=== PATIENT | female | born 2000 | race Caucasian/White ===

== ENCOUNTER 2021-05-11 10:41 | Emergency (ER) | payer BC, SELFPAY ==
[2021-05-11 10:51] VITALS: BP 122/88; PULSE 84; RESP 20; TEMP 36.8; O2SAT 100
--- NOTE | 2021-05-11 10:59 | ED.ALLEREA ---
HPI - Allergic Reaction General Chief complaint: Allergic Reaction Stated complaint: ALLERGIC REACTION Time Seen by Provider: 05/11/21 10:59 History of Present Illness HPI narrative: 20 yo female presents to the ED for an allergic reaction. She accidentally ate a fig donut, she has a known fig allergy. She developed an itchy rahs in her face and fullness in her throat. She took Benadryl and the rash subsided. She has no other complaints at this time. Related Data Allergies Allergy/AdvReac Type Severity Reaction Status Date / Time amoxicillin Allergy Unknown Hives Verified 05/11/21 11:54 fig Allergy Rash Uncoded 05/11/21 11:54 Review of Systems Review of Systems: All systems reviewed & are unremarkable except as noted in HPI and below Constitutional: Constitutional: Denies chills and Denies fever(s) ENT: Denies sore throat Cardiovascular: Cardiovascular: Reports chest pain Respiratory: Respiratory: Denies dyspnea Gastrointestinal: Gastrointestinal: Reports nausea Neurologic: Denies numbness and Denies weakness Psychiatric: Psychiatric: Denies anxiety Allergic/Immunologic: Allergic/Immunologic: Denies lip swelling, Reports throat swelling and Denies tongue swelling PMFSH Social History Social History Gender identity (if verbalized by the patient): Female Exam Const: General: healthy appearing, no acute distress and alert Orientation/consciousness: patient oriented x3 HENMT: Head: normal to inspection General nose exam: Normal nares present Face and sinus: normal facial exam Mouth: Yes Normal oral and palatal mucosa present Throat: posterior oropharynx normal Neck: Neck: normal visual inspection and no lymphadenopathy Resp: Effort & Inspection: normal respiratory effort Auscultation: clear to auscultation bilaterally, no rales, no rhonchi and no wheezes Cardio: Jugular venous distension: no JVD Rate: regular rate Rhythm: regular rhythm Heart sounds: no murmurs Skin: General skin exam: normal color Neuro: General: patient oriented x3 and moves all extremities Speech: normal speech Extrem: General: no edema Psych: Appearance: well kempt Affect: normal affect Course Vital Signs Vital signs: Vital Signs Temperature 36.8 C 05/11/21 10:51 Pulse Rate 84 05/11/21 10:51 Respiratory Rate 20 05/11/21 10:51 Blood Pressure 122/88 05/11/21 10:51 Pulse Oximetry 100 05/11/21 10:51 Temperature 36.8 C 05/11/21 10:51 Pulse Rate 75 05/11/21 11:51 Respiratory Rate 18 05/11/21 11:51 Blood Pressure 121/71 05/11/21 11:51 Pulse Oximetry 99 05/11/21 11:51 MDM - Allergic Reaction Differential Diagnosis Differential diagnosis: Likely allergic reaction Medical Records Attestation: I reviewed the patient's medical records. Discharge Plan Discharge Clinical Impression: Allergic reaction Patient Disposition: Home, Self-Care Condition: Stable Instructions: Food Allergy (ED) Prescriptions: New prednisone 20 mg tablet 40 mg PO DAILY 3 Days Qty: 6 RF: 0 Follow-up/Referrals: Mitul,Damian Aldana MD [Primary Care Provider] -
[2021-05-11 11:51] VITALS: BP 121/71; PULSE 75; RESP 18; O2SAT 99
[2021-05-11] MEDS: FAMOTIDINE 20 MG TABLET PO (11:55)
[2021-05-11] MEDS: predniSONE 20 MG TABLET 60 MG PO (11:56)
[2021-05-11 13:25] VITALS: BP 107/59; PULSE 64; RESP 18; O2SAT 100
== END 2021-05-11 13:32 | disposition home or self-care (01) ==
PROVIDERS: Emergency Provider Emergency Medicine; PCP Family Medicine
DX: T78.1XXA Other adverse food reactions, not elsewhere classified, initial encounter (principal); L27.2 Dermatitis due to ingested food
CPT/HCPCS: 99283; A9270; J7512

== ENCOUNTER 2023-02-23 11:20 | Emergency (ER) | payer BC, SELFPAY ==
--- NOTE | ~2023-02-23 | CT_ITS ---
EXAMINATION: CT abdomen pelvis w con DATE: 02/23/2023 13:09 INDICATION: Epigastric abdominal pain. Nausea and vomiting. Diarrhea. TECHNIQUE: Computed tomography (CT) of the abdomen and pelvis was performed with 100 mL Omnipaque 350 intravenous contrast. Automated exposure control and iterative reconstruction technique were employe d. The dose-length product was 682.86 mGy-cm. COMPARISON: None. FINDINGS: The visualized portions of the lung bases are clear without pneumonia or pleural effusion. The heart size is normal. No pericardial effusion. The liver, gallbladder, spleen, pancreas, adrenal glands, and kidneys are normal. There is liquid stool in the colon correlating with the patient's sym ptom of diarrhea. The appendix is normal. There are no pathologically enlarged lymph nodes. There is no free intraperitoneal fluid. There is a ring-shaped device in the vagina. There is mild thoracic sp ondylosis. IMPRESSION: 1. No etiology for the patient's symptoms. Reviewed, dictated and finalized at location A.
[2023-02-23 11:21] VITALS: BP 131/92; PULSE 105; RESP 18; TEMP 36.9; O2SAT 99
[2023-02-23] MEDS: ONDANSETRON INJ 4 MG/2 ML VIAL IV PUSH (12:03)
[2023-02-23] MEDS: FAMOTIDINE 20 MG/2 ML VIAL IV PUSH (12:03)
[2023-02-23] MEDS: DICYCLOMINE HCL INJ 20 MG/2 ML VIAL IM (12:04)
--- NOTE | 2023-02-23 12:04 | ED.ABDPAIN ---
HPI - Abdominal Pain General Chief Complaint: Abdominal Pain Stated Complaint: n/v Time Seen by Provider: 02/23/23 11:37 History of Present Illness HPI narrative: Patient is a 22-year-old G1, P1 female here for evaluation of nausea, vomiting and diarrhea over the past day. Additionally reports a crampy epigastric abdominal discomfort. States that she woke up with the symptoms and she has been unable to tolerate p.o since. Her last p.o. intake was cheese dip last night for dinner. States that her is sick with a URI but not similar symptoms. She denies any fevers, chills, shortness of breath. No blood in her vomit or stools. Related Data Allergies Allergy/AdvReac Type Severity Reaction Status Date / Time amoxicillin Allergy Unknown Hives Verified 05/11/21 11:54 fig Allergy Rash Uncoded 05/11/21 11:54 Review of Systems Review of Systems: Gen.: Denies fevers or chills Eyes: Denies eye pain or visual change ENT: Denies congestion Respiratory: Denies shortness of breath or cough CV: Denies chest pain or palpitations GI: Reports abdominal pain nausea, emesis and diarrhea : denies burning, urgency, frequency or hematuria Musculoskeletal: Denies back pain or muscle pain Neuro: Denies numbness, tingling, weakness or focal weakness Skin: Denies rash Except as documented, all other systems reviewed and negative [facility] Social History Social History Gender identity (if verbalized by the patient): Female Exam Narrative: APPEARANCE: Uncomfortable appearing. Head: Normocephalic and atraumatic. EYES: PERRLA/EOMI, conjunctivae clear NOSE: No nasal drainage EARS: External ear normal in appearance THROAT: Oropharynx is clear. Mucous membranes are moist. NECK: Supple. No adenopathy, no masses. RESPIRATORY: Airway patent, respirations nonlabored. Clear to auscultation bilaterally, no rales, rhonchi, wheezing. CARDIOVASCULAR: Regular rate and rhythm without murmurs, rubs, or gallops. ABDOMINAL: Slight epigastric tenderness to palpation. No rebound or guarding. Normoactive bowel sounds. MUSCULOSKELETAL: Extremities are warm and well-perfused. Moves all extremities well. No edema. NEURO: Normal speech. No focal neurologic deficits. SKIN: Skin is warm and dry. No rashes. PSYCHIATRIC: Normal affect/mood.. Course Vital Signs Vital signs: Vital Signs Temperature 98.4 F 02/23/23 11:21 Pulse Rate 105 H 02/23/23 11:21 Respiratory Rate 18 02/23/23 11:21 Blood Pressure 131/92 H 02/23/23 11:21 Pulse Oximetry 99 02/23/23 11:21 Oxygen Delivery Room Air 02/23/23 11:21 Temperature 98.4 F 02/23/23 11:21 Pulse Rate 71 02/23/23 14:22 Respiratory Rate 16 02/23/23 14:22 Blood Pressure 127/72 02/23/23 14:22 Pulse Oximetry 98 02/23/23 14:22 Oxygen Delivery Room Air 02/23/23 11:21 MDM - Abdominal Pain MDM Narrative Medical decision making narrative: 22-year-old female here for evaluation of nausea vomiting diarrhea and epigastric abdominal pain since waking up today. She is nontoxic in appearance, initially slightly tachycardic which improved with fluid administration. Slight tenderness in the epigastric region. Her basic labs are unremarkable. CT abdomen pelvis normal. She was given fluids, antiemetics, Pepcid and dicyclomine with improvement of her symptoms. Able to tolerate p.o. Likely gastroenteritis. She was discharged home to follow-up with her PMD, will send home with Zofran and dicyclomine as needed. Return precautions discussed and she voiced understanding. Lab Data 02/23/23 12:22 02/23/23 11:55 Labs: Lab Results 02/23/23 02/23/23 02/23/23 Range/Units 11:55 12:22 12:52 WBC 7.9 (4.5-10.0) K/mm3 RBC 4.76 (4.2-5.4) M/mm3 Hgb 14.3 (12.0-15.0) g/dL Hct 42.5 (37.0-47.0) % MCV 89.3 (80-100) fl MCH 30.0 (26-34) pg MCHC 33.6 (32-36) g/dl RDW 12
[2023-02-23] MEDS: LACTATED RINGERS 1,000 ML 999 ML IV CONT (12:05)
[2023-02-23 12:20] LABS: Alanine Aminotransferase 27 U/L (6-35); Albumin Level 4.3 g/dL (3.5-5.1); Alkaline Phosphatase 77 U/L (38-126); Anion Gap 10 mmol/L (8-16); Aspartate Amino Transferase 29 U/L (14-36); Bilirubin,Total 0.8 mg/dL (0.2-1.3); Blood Urea Nitrogen 15 mg/dL (7-17); Calcium 8.8 mg/dL (8.4-10.2); Carbon Dioxide 20 mmol/L (22-30); Chloride 106 mmol/L (98-107); Estimated CRCL calculation 128 ml/min; Estimated Glomerular Filt Rate > 60; Glucose 125 mg/dL (65-110); Lipase 49 U/L (23-300); Potassium 3.8 mmol/L (3.4-5.0); Sodium 136 mmol/L (137-145)
[2023-02-23 12:29] LABS: Basophils Percent Auto 0.3 % (0.2-1.2); Eosinophils Percent Auto 0.1 % (0-4.4); Hematocrit 42.5 % (37.0-47.0); Hemoglobin 14.3 g/dL (12.0-15.0); Immature Granulocyte Absolute 0.03 K/mm3 (0.00-0.031); Immature Granulocyte Percent A 0.4 % (0-0.5); Lymphocytes Absolute Auto 0.63 K/mm3 (0.9-3.2); Mean Corpuscular HGB Conc 33.6 g/dl (32-36); Mean Corpuscular Volume 89.3 fl (80-100); Monocytes Absolute Auto 0.4 K/mm3 (0.1-0.6); Monocytes Percent Auto 4.4 % (2.6-8.5); Neutrophils Absolute Auto 6.9 K/mm3 (1.3-6.7); Neutrophils Percent Auto 86.8 % (45.5-73.1); Platelet Count Result 210 k/mm3 (150-375); Red Blood Count 4.76 M/mm3 (4.2-5.4); Red Cell Distribution Width 12.3 % (11.5-14.5); White Blood Count 7.9 K/mm3 (4.5-10.0)
[2023-02-23 13:03] LABS: Appearance Urine Clear (Clear); Bacteria Urine None Seen /hpf; Bilirubin Urine Negative (Negative); Blood Urine Negative (Negative); Color Urine Yellow (Yellow); Glucose Urine UA Negative (Negative); Ketones Urine 2+ mg/dL (Negative); Leukocyte Esterase Ur Trace LEU/UL (Negative); Nitrate Urine Negative (Negative); Non Pathogenic Casts 0-2; Protein Urine Negative (Negative); RBC Urine 0-2 /hpf (0-2); Squamous Epithelial Cell Urine None seen /hpf (Few); WBC Urine 0-5 /hpf; pH Urine 6.5 (5.0-9.0)
[2023-02-23 13:08] LABS: Add Urine Microscopic? YES
[2023-02-23 14:22] VITALS: BP 127/72; PULSE 71; RESP 16; O2SAT 98
== END 2023-02-23 14:24 | disposition home or self-care (01) ==
PROVIDERS: Emergency Medicine; Emergency Provider Physician Assistant
DX: K52.9 Noninfective gastroenteritis and colitis, unspecified (principal)
CPT/HCPCS: 36415; 74177; 80053; 81001; 81025; 83690; 85025; 96361; 96372; 96374; 96375; 99284; J0500; J2405; J7120; Q9967

== ENCOUNTER 2024-02-13 08:51 | Outpatient (CLI) | payer BC, SELFPAY ==
--- NOTE | ~2024-02-13 | XR_ITS ---
EXAMINATION: XR chest 2V 02/13/2024 09:06 INDICATION: Cough PROCEDURE: 2 view chest COMPARISON: No prior studies for comparison. FINDINGS: The lungs are clear. The cardiomediastinal silhouette is within normal limits. There are no pleural effusions. There is no pneumothorax suspected. IMPRESSION: 1: NO ACUTE CARDIOPULMONARY DISEASE. Reviewed, dictated and finalized at location B.
[2024-02-13 10:05] LABS: Influenza A QL RT-PCR Negative (Negative); Influenza B QL RT-PCR Negative (Negative); RSV RNA, RT-PCR Negative (Negative); SARS-CoV-2 RNA PCR Negative (Negative)
== END 2024-02-13 08:52 | disposition home or self-care (01) ==
PROVIDERS: PCP Nurse Practitioner Family; Visit Provider Nurse Practitioner Family
DX: R05.9 Cough, unspecified (principal); Z20.822 Contact with and (suspected) exposure to COVID-19
CPT/HCPCS: 71046; 87637

== ENCOUNTER 2024-06-08 13:52 | Outpatient (CLI) | payer BC, SELFPAY ==
--- NOTE | ~2024-06-08 | US_ITS ---
EXAMINATION: US pelvic complete w TV DATE: 06/08/2024 14:19 INDICATION: Pelvic pain. Abnormal uterine bleeding. TECHNIQUE: Multiple transabdominal and endovaginal sonographic images of the pelvis were obtained. COMPARISON: None. FINDINGS: The uterus measures 7.5 x 3.5 x 4.3 cm. The endometrial complex measures 3 mm in thickness. The righ t ovary measures 2.3 x 1.4 x 2.1 cm. The left ovary measures 2.1 x 1.3 x 1.7 cm. Vascular flow and sm all anechoic ovarian follicles identified in both ovaries on color Doppler. There is no free fluid in the pelvis. IMPRESSION: 1. Normal pelvic ultrasound. Reviewed, dictated and finalized at location A.
== END 2024-06-08 13:53 ==
PROVIDERS: PCP Family Medicine; Visit Provider Nurse Practitioner Women's Health
DX: R10.2 Pelvic and perineal pain (principal)
CPT/HCPCS: 76830; 76856

== ENCOUNTER 2025-03-24 11:12 | Emergency (ER) | payer MEDICAID, SELFPAY ==
[2025-03-24 11:19] VITALS: BP 141/80; PULSE 81; RESP 18; TEMP 36.1; O2SAT 100
--- NOTE | 2025-03-24 11:19 | ED_ITS ---
HPI - URI/Sore Throat General Chief Complaint: Upper Respiratory Infection Stated Complaint: headache/ear pain Time Seen by Provider: 03/24/25 11:15 Source: patient Mode of arrival: ambulatory Limitations: no limitations History of Present Illness HPI Narrative: Patient is a 24-year-old female who presents with chest tightness, body aches, chills, and cough a she also reports around sinus pressure and nasal congestion, and sore throat. Denies fever at this time. Reports decreased appetite, trying to stay hydrated and good urine output. She works at a daycare. She has tried Sudafed yesterday and this morning with minimal improvement. She reports having pneumonia 2 years ago. She also reports nonradiating epigastric pain and constipation last bowel movement was yesterday no blood noted. Reports burning sensation when she takes deep breath. Denies nausea, vomiting, or diarrhea. Related Data Allergies Allergy/AdvReac Type Severity Reaction Status Date / Time amoxicillin Allergy Unknown Anaphylaxis Verified 03/24/25 11:28 Penicillins AdvReac Anaphylaxis Verified 03/24/25 11:28 fig Allergy Rash Uncoded 03/24/25 11:28 Review of Systems Review of Systems: All systems reviewed & are unremarkable except as noted in HPI and below Constitutional: Constitutional: Reports body ache(s), Reports chills, Reports difficulty sleeping, Denies fatigue, Denies fever(s), Denies headache(s), Denies malaise, Reports poor appetite and Denies weakness Eyes: Eyes: Denies blurry vision, Reports eye discharge, Denies itchy eyes and Denies loss of vision ENT: Denies otalgia, Denies headache(s), Reports nasal congestion, Reports sinus pain and Reports sore throat (mild) Cardiovascular: Cardiovascular: Denies chest pain, Denies irregular heart rhythm, Reports dyspnea and Reports other (chest tightness and burning when taking a deep breath) Respiratory: Respiratory: Reports cough (nonproductive), Denies hemoptysis, Reports pain on inspiration (burning), Denies dyspnea, Reports dyspnea on exertion and Reports wheezing (at night) Gastrointestinal: Gastrointestinal: Denies abdominal pain, Denies melena, Denies hematochezia, Reports constipation, Denies diarrhea, Denies nausea, Denies vomiting and Reports other (epigastric ache) Musculoskeletal: Musculoskeletal: Denies back pain, Reports myalgias and Denies arthralgias Integumentary/Breasts: Skin/Breast: Denies pruritus and Denies rash Neurologic: Denies headache(s), Denies loss of vision and Denies weakness Psychiatric: Psychiatric: Reports no additional psychiatric complaints Endocrine: Endocrine: Denies fatigue Allergic/Immunologic: Allergic/Immunologic: Denies itchy eyes PMFSH Social History Social History Smoking status: Never smoker Tobacco type: e-cigarettes/vaping Alcohol intake: current Substance use type: does not use Gender identity (if verbalized by the patient): Female Comments At time of signature, agree with nursing past medical, surgical, social and family history. There is no relevant family history pertinent to the presenting complaint. Exam Const: General: cooperative, healthy appearing, comfortable, no acute distress and well nourished Nutritional Appearance: well nourished Orientation/consciousness: patient oriented x3 Limitations: no limitations HENMT: Head: normal to inspection, normocephalic and atraumatic Ears: hearing grossly normal bilaterally, external ears normal, TM's normal bilaterally, EAC's normal and no periauricular adenopathy Face/Nose/Sinus: Normal external nose present, Abnormal mucous membranes and turbinates present erythematous bilateral and diffuse, normal facial exam, face symmetric and Facial tenderness on exam of face and sinuses Face and sinus: normal facial exam and face symmetric Mouth: Yes Normal oral and palatal mucosa present, Yes lip normal, Yes tongue normal, Yes Normal salivary glands and ducts present, Yes oropharynx normal and Yes moist mucous membranes Teeth and gingiva: dentition normal Throat: posterior oropharynx normal, tonsils normal and uvula midline Eyes: General: appearance normal, both eyes and all related structures Alignment and Position: alignment normal and position normal Periorbital: periorbital findings normal Eyelids: eyelids normal Pupils: Equal, round and reactive pupils present Neck: Neck: normal visual inspection, full ROM, no lymphadenopathy and supple Chest: Chest palpation & inspection: normal inspection of the chest and normal palpation of entire chest wall Resp: Effort & Inspection: normal respiratory effort, able to speak in complete sentences and Actively coughing dry Auscultation: crackles (fine) diffuse, no rales, no rhonchi and no wheezes Cardio: Rate: regular rate Rhythm: regular rhythm Heart sounds: S1 normal heart sound present and S2 normal heart sound present GI: Inspection: normal to inspection Skin: General skin exam: normal color and no rashes or lesions noted Neuro: General: patient oriented x3 and moves all extremities Cranial nerves: Yes Equal, round and reactive pupils present Speech: normal speech Gait exam (Neuro): Normal gait present Extrem: General: normal to inspection, full ROM and no edema Psych: Appearance: grossly normal and well kempt Mental Status: mental status grossly normal Speech and movement: Normal speech and movement present Affect: normal affect Attitude: cooperative Thought process: Normal thought process present Course Course Emergency Course: Discharge instructions reviewed with patient, as well as provided in writing pe r nursing staff. The instructions also include specific and strict return/GO TO THE ER as well as f/u information. All questions have been answered, and the patient deny any further questions with discharge and discharge plan. Portions of this record may have been created with voice recognition software Level of Care: Express Care Visit Vital Signs Vital signs: Reviewed MDM - URI/Sore Throat MDM Narrative Medical decision making narrative: Pt well hydrated appearing, in no respiratory distress, hemodynamically stable. Recommend supportive care. The patient is stable at time of discharge the clinical impression was discussed and the patient was given the opportunity to ask questions, which were addressed as completely as possible given the information available at present. Anticipatory guidance and return to care precautions were discussed and the importance of primary care follow-up was stressed and encouraged. The patient voiced understanding of the plan, indications to return, and the need for follow-up. Exam findings show no acute concerns or changes Patient is appropriate for outpatient treatment and follow-up. Differential diagnosis considered: Calvo virus, strep pharyngitis, allergic rhinitis, upper respiratory tract infection, sinusitis, rhinosinusitis, nasopharyngitis. viral pharyngitis, otitis media, otitis externa, otitis effusion, foreign body, cerumen impaction, viral syndrome, and influenza.? Medical Records Attestation: I reviewed the patient's medical records. Discharge Plan Discharge Clinical Impression: Sinobronchitis Patient Disposition: Home Condition: Stable Instructions: Sinusitis (ED), Acute Bronchitis (ED) Additional Instructions: Take antibiotic as prescribed. Take steroids in the morning with food. Use Tessalon Perles as needed for cough. Use inhaler with spacer as needed. Other symptomatic treatments include: -Alternate Tylenol and Motrin per package directions for fever or pain: Tylenol 650-1000mg by mouth every 4-6 hours. Do not exceed 4000mg in 24 hours. Advil (Ibuprofen) 600 mg by mouth every 6 hours. Do not exceed 2400mg in 24 hours. 8 AM: Tylenol 11 AM: Ibuprofen 2 PM: Tylenol 5 PM: Ibuprofen 8 PM: Tylenol 11 PM: Ibuprofen 2 AM: Tylenol 5 AM: Ibuprofen -Antihistamine medication such as Benadryl at night and Zyrtec/Claritin/Amanda during the day can help improve symptoms. -Use Flonase twice a day for 5 days then daily to help reduce the inflammation and dry up your sinuses. -You can also use Sudafed or Mucinex. Be sure to drink plenty of water with these medications at least 8 ounces with every dose and it is important to drink 8 to 10 glasses of water per day. Water is a natural decongestant -Eat and drink things that are easy to swallow, like tea or soup, or popsicles. -Oral rinses such as: Salt water gargles and/or may use topical anesthetic (eg. Chloraseptic spray) or lozenges to relieve dryness or throat pain). -Frequent hand washing or hand core fitter is one of the best ways to prevent spread of infection. -Using a vaporizer or humidifier at night will also help thin secretions and help with coughing up phlegm. Call your Primary Care Doctor and make a follow-up appointment in 3 days. If your cough worsens, you develop a fever greater than 103, you develop shaking chills, a fast heartbeat, trouble breathing and/or feel you are are breathing much faster than usual, call your Primary Care Doctor or go to the ER. Your blood pressure was elevated above 120/80 today at Urgent Care. This puts you above the threshold for follow up visit with a primary care provider. High blood pressure does not usually cause any symptoms, however it may lead to kidney failure, stroke, heart disease just to name a few if untreated . Many people are anxious when seeing a provider or nurse. As a result, you are not diagnosed with hypertension at this time unless your blood pressure is persistently high at two office visits at least one week apart. Some things that can help lower blood pressure are lifestyle modifications, such as light exercise, decreased salt in diet, and weight loss. It is important to follow up with a PCP about this within 1 week. Patient Language: Romanian Prescriptions: New doxycycline monohydrate 100 mg tablet 100 mg PO BID 10 Days Qty: 20 0RF prednisone 20 mg tablet 40 mg PO DAILY 5 Days Qty: 10 0RF benzonatate 100 mg capsule 100 mg PO BID PRN (Reason: cough) Qty: 14 0RF albuterol sulfate 90 mcg/actuation HFA aerosol inhaler 2 puff inhalation QID PRN (Reason: shortness of breath or wheezing) Qty: 6.7 0RF (DME) Aerochamber MV Spacer See Rx Instructions .Route Qty: 1 0RF Rx Instructions: As directed Follow-up/Referrals: Ramesh aMrtinez MD [Primary Care Provider] - 3 Days Stand Alone Forms: Work/School Release IP Time of Disposition: 12:09
== END 2025-03-24 12:18 | disposition home or self-care (01) ==
PROVIDERS: Emergency Provider Nurse Practitioner Family; PCP Family Medicine
DX: J32.9 Chronic sinusitis, unspecified (principal); J40 Bronchitis, not specified as acute or chronic; F17.290 Nicotine dependence, other tobacco product, uncomplicated
CPT/HCPCS: 99213; G0463

== ENCOUNTER 2025-08-15 16:02 | Outpatient (CLI) | payer MEDICAID, SELFPAY ==
--- NOTE | ~2025-08-15 | US_ITS ---
Clinical history:Pelvic pain. LMP 06/28/2025. Positive test. EXAM:Ultrasound OB transvaginal TECHNIQUE:Multiple static grayscale images and color Doppler images were obtained. Comparisons:Ultrasound pelvis June 08, 2024 FINDINGS: Uterus measures 10.0 x 5.4 x 6.4 cm. Right ovary measures 1.9 x 1.6 x 1.9 cm. Left ovary measures 3.1 x 1.8 x 2.7 There is an intrauterine gestational sac with pole and yolk sac. Yolk sac measures 0.36 cm. pole measures 1.14 cm which gives a gestational age of 7 weeks and 2 days. There is cardiac activity with a heart rate of 135 bpm. There is a 1.2 x 0.5 x 0.9 cm subchorionic hemorrhage. IMPRESSION: 1. Single live intrauterine with a gestational age of 7 weeks and 2 days by current sonographic measurements. 2. There is a 1.2 x 0.5 x 0.9 cm subchorionic hemorrhage. A short-term follow-up ultrasound is recommended. Reviewed, dictated and finalized at location Q. IMPRESSION: 1. Single live intrauterine with a gestational age of 7 weeks and 2 d ays by current sonographic measurements. 2. There is a 1.2 x 0.5 x 0.9 cm subchorionic hemorrhage. A short-term follow-u p ultrasound is recommended.
== END 2025-08-15 16:03 | disposition home or self-care (01) ==
LOC: MICIMG 16:04
PROVIDERS: PCP Obstetrics & Gynecology Gynecology; Visit Provider Obstetrics & Gynecology Gynecology
DX: O36.8910 Maternal care for other specified fetal problems, first trimester, not applicable or unspecified (principal); Z3A.00 Weeks of gestation of pregnancy not specified
CPT/HCPCS: 76817

== ENCOUNTER 2025-08-22 20:45 | Emergency (ER) | payer MEDICAID, SELFPAY ==
--- NOTE | ~2025-08-22 | US_ITS ---
EXAMINATION: US OB <= 14 weeks fetus DATE: 08/22/2025 23:28 INDICATION: Abdominal pain during first trimester of . TECHNIQUE: Real-time pelvic ultrasound utilizing both a transvaginal and transabdominal probe was performed. The interpreting radiologist was not present for the study. COMPARISON: 08/15/2025 FINDINGS: The uterus measures 10.2 x 6.5 x 6.8 cm. There is an intrauterine gestational sac. A yolk sac and pole are identified. The crown rump length measures 2.1 cm, which is concordant within 3 days of the previously estimated gestational age of 8 weeks and 2 days. heart motion is identified jose uring 165 beats per minute (bpm) by M-mode Doppler. No significant change in a 10 x 10 x 7 mm anechoic likely subchorionic hematoma along the caudal margin of the gestational sac. The right ovary measures 2.5 x 2.4 x 2.4 cm. The left ovary measures 2.7 x 2.5 x 2.2 cm. Vascular flow identified in both ovaries on color Doppler. There is no free fluid in the pelvis. IMPRESSION: 1. Single living fetus with heart rate of 165 bpm. 2. [place]-rump length of 2.1 cm which is concordant within 3 days of the previously estimated gestational age by ultrasound of 8 weeks 2 day(s) +/- 5 day(s) with ultrasound estimated date of delivery (MANJULA) of 04/01/2026. 3. No significant change in a small subchorionic hematoma. Reviewed, dictated and finalized at location A. TER FOREMAN IMPRESSION: 1. Single living fetus with heart rate of 165 bpm. 2. [place]-rump length of 2.1 cm which is concordant within 3 days of the previou sly estimated gestational age by ultrasound of 8 weeks 2 day(s) +/- 5 day(s) wi th ultrasound estimated date of delivery (MANJULA) of 04/01/2026. 3. No significant change in a small subchorionic hematoma.
--- OUTSIDE RECORDS SUMMARY | 2025-08-22 20:48 | XMS_ITS | Clinical Summary ---
Author Organization [facility] Address [address] [place] [address] Care Team Providers Care Pipe Caulker Name Role Phone Unavailable Primary Care Provider Unavailabl e Source Comments [facility],non-owned Affiliates and Associated Physician Practices is amultiple site organization consisting of ambulatory clinics and hospital sitesin [place], [place], [place] and [place]. This disclosure is being madepursuant to the Care Everywhere program and may not contain all information available regarding this patient. Last updated 18.[facility] [place] Allergies Active Allergy Reactions Criticality Noted Date Comments Amoxicillin Rash,Swelling Low 04/12/2013 Swelling of her tongue Penicillins Urticaria Medium 02/05/2018 Ficus Urticaria,Angioedema High 05/11/2021 Swelling of lips and tongue, hives Medications * Be aware that medications may not be up to date on this document. Alwaysverify current medications with the patient. etonogestrel (NEXPLANON) 68 MG implant 68 mg by Subdermal route as directed Active EPINEPHrine (EPIPEN) 0.3 MG/0.3ML auto-injector pen Inject 0.3 mL into muscle once as needed for Anaphylaxis Disp: #1 of the twin pack 2 Pen 1 Active Active Problems Problem Noted Date Diagnosed Date Nexplanon in place 12/23/2016 Scoliosis-15 degree lower 05/05/2013 Assessment & Plan (05/05/2013 10:12 AM CDT): Repeat xray summer 2013 Resolved Problems Problem Noted Date Diagnosed Date Resolved Date BMI (body mass index), pedia tric, 85% to less than 95% for age 0604/12/2013 02/05/2018 Immunizations Immunization Administration Dates Next Due DTaP VACCINE IM (6wk-6yrs) 01/28/2007,,03/11/2002, 2,2001 HEP A PEDS 2 DOSE 12/23/2016,12/19/2015 HEP B VACCINE, PED/ADOL 09/15/2002,01/07/2002, HIB-PRP-OMP 3 DOSE 09/15/2002,01/07/2002, 002 MENINGOCOCCAL ACWY (MCV4P) VAC IM 02/05/2018,10/2015 MMR 01/28/2007,12/14/2002 PNEUMOCOCCAL PCV7 CONJ, PEDS 12/14/2002, 03/11/2002,01/07/2002, 2 POLIO IPV 01/28/2007, 3,01/07/2002, 2 TDAP (7yrs+) 04/12/2013 VARICELLA 01/28/2007,09/15/2002 Family History Medical History Relation Name Comments Hypertension Maternal Grandfather Diabetes Maternal Grandmother Heart Failure Maternal Grandmother heart attack 2011 Hypertension Maternal Grandmother Diabetes Mother Migraine Mother Hypertension Paternal Grandfather Heart Failure Paternal Grandmother Hypertension Paternal Grandmother Relation Name Status Comments Father Alive Maternal Grandfather Alive Maternal Grandmother Alive Mother Alive Paternal Grandfather Alive Paternal Grandmother Alive Sister Alive Social History Tobacco Use Types Packs/Day Years Used Date Smoking Tobacco: Passive Smo ke Exposure - Never Smoker Comments:father smokes in th e house when they visit Alcohol Use Standard Drinks/Week Comments Not Asked 0 (1 standard drink = 0.6 oz pur e alcohol) Comments No Sex and Gender Information Value Date Recorded Sex Assigned at Not on file Legal Sex Female 11:30 AM CDT Gender Identity Not on file Sexual Orientation Not on file Last Filed Vital Signs Vital Sign Reading Time Taken Comments Blood Pressure 124/75 02/05/2018 1:30 PM CDT Pulse 69 02/05/2018 1:30 PM CDT Temperature 37.7 C (99.9 F) 02/05/2018 1:09 PM CDT Respiratory Rate - - Oxygen Saturation - - Inhaled Oxygen Concentration - - Weight 58.5 kg (129 lb) 02/05/2018 1:09 PM CDT Height 159.4 cm (5' 2.75) 02/05/2018 1:09 PM CD T Body Mass Index 23.03 02/05/2018 1:09 PM CDT Plan of Treatment Health Maintenance Due Date Last Done Comments HIV SCREENING 2016 HPV VACCINE (1 - 3-dose series) 2016 MENINGOCOCCAL (Group B) VACC INE SHARED DECISION-MAKING (1 of 2 - Standard) 2017 CHLAMYDIA/GONORRHEA SCREENING 06/10/2018 06/10/2017, 04/29/2017 HEPATITIS C SCREENING 08/28/2019 DTAP/TDAP/TD VACCINES (7 - T d or Tdap) 04/12/2023 04/12/2013, 01/28/2007, 03/03/2003, Additional history exists DEPRESSION SCREENING 10/20/2024 COVID-19 VACCINE (2023-2 5 season) 2025 INFLUENZA VACCINE (#1) 2025 ZOSTER VACCINE (1 of 2) 2051 HEPATITIS B VACCINE Completed 09/15/2002, 01/07/2002, 2001 HIB VACCINE Completed 09/15/2002, 12/19, 2001 PNEUMOCOCCAL VACCINE Completed 12/14/2002, 03/11/2002, 01/07/2002, Additional history exists MENINGOCOCCAL GROUPS A/C/Y/W VACCINE Completed 02/05/2018, 12/19/2015 Goals Goal Patient Goal Type Associated Problems Recent Progress Patient-Stated? Author [facility] Lifestyle: Use safety retraint in car Lifestyle On track( 018 1:09 PM CDT) Alem Santacruz, tool and die maker level five Procedure Name Priority Date/Time Associated Diagnosis Comments CHLAMYDIA + GC AMPLIFIED PROBE Routine 06/10/2017 10:07 AM CDT Hx of chlamydia infection from Last 3 Months or Most Recently Relevant to Health Maintenance Results * CHLAMYDIA + GC AMPLIFIED PROBE (06/10/2017 10:07 AM CDT) Chlamydia ESTRELLA Urine Negative Negative [facility] ACCOUNT BILL GC ESTRELLA Urine Negative Negative [facility] ACCOUNT BILL Microbiology URINE / Unknown 06/10/2017 1 0:07 AM CDT 06/10/2017 Narrative Resulting Agency Comment [facility] [address] [place] DAVIS [id number] Sudha Saha MD LAB - MICROBIOLOGY ORDERABLES Final Result [facility] ACCOUNT BILL [id number] [place] [address] from Last 3 Months or Most Recently Relevant to Health Maintenance Insurance HEALTHCARE
--- OUTSIDE RECORDS SUMMARY | 2025-08-22 20:48 | XMS_ITS | Encounter Summary ---
Author Organization [facility] Address [address] [place] [address] Care Team Providers Care Electricity Trader Name Role Phone Sudha Saha MD Primary Care Provider [phone] Encounter Details Date Type Department Care Team (Late st Contact Info) Description 11/13/[address] [facility] Outpatient Visit CG DEFAULT [address], [place] [id number] Unknown, Provider Social History Tobacco Use Types Packs/Day Years [...] on file Sexual Orientation Not on file documented as of this encounter Plan of Treatment Not on file documented as of this encounter Visit Diagnoses Not on filedocumented in this encounter Care Teams Electricity Trader Relationship Specialty Start Date End Date Sudha Saha MD PCP - General Pediatrics 03/18/13 02/16/18 documented as of this encounter
--- OUTSIDE RECORDS SUMMARY | 2025-08-22 20:48 | XMS_ITS | Clinical Summary ---
Author Organization [facility] Address [address] [place] [id number] Care Team Providers Care Metal Hanging Supervisor Name Role Phone Damian Bauman MD Primary Care Provider Unav ailable Allergies Active Allergy Reactions Criticality Noted Date Comments Amoxicillin Hives 03/05/2021 Ficus Angioedema,Hives High 05/11/2021 Swelling of lips and tongue, hives Medications NUVARING 0.12-0.015 MG/24HR RING INSERT 1 VAGINALLY ONCE EVERY MONTH 2 Active silver sulfADIAZINE 1 % creamIndications: Sunburn Apply topically 2 (two) times daily. 25 g 2 Active Active Problems Problem Noted Date Diagnosed Date Sunburn, blistering 04/08/2022 Rib pain on left side 04/08/[address] 12/23/2016 Scoliosis 05/05/2013 Overview (04/02/2022): Last Assessment & Plan: Repeat xray summer 2013 Open wound of finger 04/18/2013 Acute suppurative otitis media 09/14/2011 Resolved Problems Problem Noted Date Diagnosed Date Resolved Date Routine infant or child health check 09/14/2011 04/08/2022 Immunizations Immunization Administration Dates Next Due Dtap 01/28/2007, 3,03/11/2002,01/07/2002 ,2001 Hepatitis A (Generic) 12/23/2016,12/19/2015 Hepatitis A (Havrix [address]) 12/23/2016, 016 Hepatitis B 09/15/2002 Hepatitis B Pediatric 09/15/2002,01/07/2002,10/20 Hib (Generic) 09/15/2002 Hib (PedvaxHIB)3 Dose 09/15/2002,01/07/2002,10/20 Hib-Hepatitis B (Comvax) 01/07/2002,2001 MMR 01/28/2007,12/14/2002 Menactra 02/05/2018,12/19/2015 Pneumococcal(Pcv 7)Aka Prevnar 7 12/14/2002,02/18,01/07/2002,2001 Polio IPV (Ipol) 01/28/2007,03/03/2003,,2001 Tdap (Boostrix) 04/12/2013 Varicella Vaccine 01/28/2007,09/15/2002 Family History Medical History Relation Comments Diabetes Mother Relation Status Comments Mother Social History Tobacco Use Types Packs/Day Years Used Date Smoking Tobacco: Every Day Pipe Smokeless Tobacco: Never Tobacco Cessation:Ready to Q uit: Not Asked; Counseling Given: Not Answered Alcohol Use Standard Drinks/Week Comments Never 0 (1 standard drink = 0.6 oz pur e alcohol) AUDIT-C Answer Date Recorded Q1: How often do you have a drink containing alc ohol? Never 03/05/2021 Average Number of Drinks Not on file 021 Frequency of Binge Drinking Not on file 02/17 PHQ-2 Answer Date Recorded PHQ-2 Score - If the patient scores above 3, please move on to questions 3-9 0 04/08/2022 Comments No Sex and Gender Information Value Date Recorded Sex Assigned at Not on file Legal Sex Female 7:28 PM CDT Gender Identity Not on file Sexual Orientation Not on file Last Filed Vital Signs Vital Sign Reading Time Taken Comments Blood Pressure 121/91 09/22/2023 5:53 PM PAINTER APPRENTICE Pulse 108 09/22/2023 8:06 PM PAINTER APPRENTICE Temperature 37.2 C (99 F) 09/22/2023 5:53 PM PAINTER APPRENTICE Respiratory Rate 16 09/22/2023 5:53 PM PAINTER APPRENTICE Oxygen Saturation 100% 09/22/2023 8:06 PM PAINTER APPRENTICE Inhaled Oxygen Concentration - - Weight 75.3 kg (166 lb) 09/22/2023 5:53 PM PAINTER APPRENTICE Height 157.5 cm (5' 2) 09/22/2023 5:53 PM PAINTER APPRENTICE Body Mass Index 30.36 09/22/2023 5:53 PM PAINTER APPRENTICE Plan of Treatment Health Maintenance Due Date Last Done Comments Cervical Cancer Screening Pap Smear (Age 21 to 29) Every 3 Years 2001 Cervical Cancer Screening 2001 Annual Physical 2004 HPV Vaccines (1 - 3-dose series) 2016 Meningococcal B Vaccine (1 of 2 - Standard) 2017 Hepatitis C 2019 Pneumococcal Vaccine: Pediatrics (0 to 5 Years) and At-Risk Patients (6 to 49 Years) (1 of 2 - PCV) 2020 12/14/2002, 03/11/2002, 01/07/2002, Additional history exists DTaP, Tdap and Td Vaccines (7 - Td or Tdap) 04/12/2023 04/12/2013, 01/28/2007, 03/03/2003, Additional history exists COVID-19 Vaccine ( - 2024- season) 2025 Influenza Adult (#1) 2025 Hepatitis B Vaccines Completed 09/15/2002, 09/15/2002, 01/07/2002, Additional history exists Hepatitis A Vaccines Completed 12/23/2016, 12/23/2016, 12/19/2015, Additional history exists Meningococcal Vaccine Completed 02/05/2018, 016 RSV Immunizations Under 20 Months Aged Out No longer eligible based on patient's age to complete this topic Insurance Care Teams Metal Hanging Supervisor Relationship Specialty Start Date End Date Damian Bauman MD PCP - General FAMILY PRACTICE 03/05/21
--- OUTSIDE RECORDS SUMMARY | 2025-08-22 20:48 | XMS_ITS | Clinical Summary ---
Author Organization [facility] Care Team Providers Care Ceo Na Name Role Phone Unavailable Primary Care Provider Unavailabl e Social History Tobacco Use Types Packs/Day Years Used Date Smoking Tobacco: Never Assessed Comments Unknown Sex and Gender Information Value Date Recorded Sex Assigned at Not on file Legal Sex Female 1:53 PM SCHEDULING COORDINATOR Gender Identity Not on file Sexual Orientation Not on file Plan of Treatment Health Maintenance Due Date Last Done Comments Hepatitis C Virus (HCV) Screening 2001 Human Papillomavirus (HPV) Immunization (1 - 3-dose series) 2016 Meningococcal B Immunization (1 of 2 - Standard) 2017 Influenza Immunization (#1) 2025 SARS-COV-2 Immunization ( - season) 2025 Respiratory Syncytial Virus (RSV) Immunization (Adult) (1 - 1-dose 75+ series) 2076 Hepatitis B Immunization Completed 002, 01/07/2002, 2001 Pneumococcal Immunization Combined Aged Out 12/14/2002, 03/11/2002, 01/07/2002, Additional history exists No longer eligible based on patient's age to complete this topic DTaP/Tdap/Td Immunization Discontinued 2012, 01/28/2007, 03/03/2003, Additional history exists TdaP Immunization Completed 04/12/2013 Meningococcal Immunization (ACWY) Completed 02/05/2018, 12/19/2015 Rotavirus Immunization Aged Out No lo nger eligible based on patient's age to complete this topic
[2025-08-22 20:49] VITALS: BP 139/79; PULSE 92; RESP 17; TEMP 36.4; O2SAT 100
[2025-08-22 22:09] LABS: BEDSIDEPREGUCG Positive (Negative)
[2025-08-22 22:14] LABS: Hematocrit 41.8 % (37.0-47.0); Hemoglobin 14.0 g/dL (12.0-15.0); Immature Granulocyte Percent A 0.4 % (0-0.5); Lymphocytes Absolute Auto 3.02 K/mm3 (0.9-3.2); Mean Corpuscular HGB Conc 33.5 g/dl (32-36); Mean Corpuscular Hemoglobin 29.0 pg (26-34); Mean Corpuscular Volume 86.7 fl (80-100); Nucleated Red Blood Cells Absolute Auto 0.000 K/mm3 (0.0-0.012); Nucleated Red Blood Cells Perc 0.0 % (0.0-0.2); Platelet Count Result 217 k/mm3 (150-375); Red Blood Count 4.82 M/mm3 (4.2-5.4); White Blood Count 13.9 K/mm3 (4.5-10.0)
[2025-08-22 22:18] LABS: Add Urine Microscopic? NO; Appearance Urine Clear (Clear); Glucose Urine UA Negative (Negative); Leukocyte Esterase Ur Negative LEU/UL (Negative); Nitrate Urine Negative (Negative); Specific Grav Ur 1.038 (1.001-1.035)
[2025-08-22 22:24] LABS: Alanine Aminotransferase 23 U/L (6-35); Albumin Level 4.3 g/dL (3.5-5.1); Alkaline Phosphatase 59 U/L (38-126); Anion Gap 7 mmol/L (4-12); Aspartate Amino Transferase 26 U/L (14-36); Bilirubin,Total 0.3 mg/dL (0.2-1.3); Blood Urea Nitrogen 13 mg/dL (7-17); Calcium 9.4 mg/dL (8.4-10.2); Carbon Dioxide 23 mmol/L (22-30); Chloride 105 mmol/L (98-107); Estimated CRCL calculation 149 ml/min; Estimated Glomerular Filt Rate > 60; Glucose 86 mg/dL (65-110); Lipase 69 U/L (23-300); Potassium 3.7 mmol/L (3.4-5.0); Sodium 135 mmol/L (137-145); Total Protein 7.4 g/dL (6.3-8.2)
[2025-08-22] MEDS: ACETAMINOPHEN 500 MG TABLET 1000 MG PO (23:24)
[2025-08-22] MEDS: ONDANSETRON INJ 4 MG/2 ML VIAL IV PUSH (23:24)
[2025-08-22] MEDS: SODIUM CHLORIDE 0.9% IV 1,000 ML 999 ML IV CONT (23:25)
--- NOTE | 2025-08-23 00:09 | ED_ITS ---
HPI - Abdominal Pain General Chief Complaint: Abdominal Pain Stated Complaint: preg abd pain Time Seen by Provider: 08/22/25 22:55 Source: patient Mode of arrival: ambulatory Limitations: no limitations History of Present Illness HPI narrative: This is a 24-year-old female that presents to the emergency department for sharp, intermittent lower abdominal pain. Reports she is currently about 8 weeks . Her OB is Dr. Hayes. Denies fevers, vomiting, dysuria, diarrhea. Related Data Allergies Allergy/AdvReac Type Severity Reaction Status Date / Time amoxicillin Allergy Unknown Anaphylaxis Verified 03/24/25 11:28 Penicillins AdvReac Anaphylaxis Verified 03/24/25 11:28 fig Allergy Rash Uncoded 03/24/25 11:28 Review of Systems 2 Review of Systems: All systems reviewed & are unremarkable except as noted in HPI and below PMFSH Social History Social History Smoking status: Never smoker Tobacco type: e-cigarettes/vaping Alcohol intake: current Substance use type: does not use Gender identity (if verbalized by the patient): Female Exam 2 Narrative: GENERAL: Well-appearing, well-nourished, and in no acute distress. HEAD: Normocephalic, atraumatic. EYES: EOMI. CHEST: Clear to auscultation. No respiratory distress. No wheezes rales or rhonchi HEART: Regular rate and rhythm. No murmur heard. Normal peripheral pulses. ABDOMEN: Soft, nontender, nondistended, normal active bowel sounds. EXTREMITIES: Normal range of motion. No edema. SKIN: Warm, dry, no rash. NEURO: No focal deficits. Alert and oriented x3. PSYCH: Normal mood and affect Course Vital Signs Vital signs: Vital Signs Temperature 97.5 F L 08/22/25 20:49 Pulse Rate 92 08/22/25 20:49 Respiratory Rate 17 08/22/25 20:49 Blood Pressure 139/79 08/22/25 20:49 Pulse Oximetry 100 08/22/25 20:49 Oxygen Delivery Room Air 08/22/25 20:49 Temperature 97.5 F L 08/22/25 20:49 Pulse Rate 92 08/22/25 20:49 Respiratory Rate 17 08/22/25 20:49 Blood Pressure 139/79 08/22/25 20:49 Pulse Oximetry 100 11/03/25 20:49 Oxygen Delivery Room Air 08/22/25 20:49 MDM - Abdominal Pain MDM Narrative Medical decision making narrative: Patient presents to the ER for lower abdominal pain in early . She is afebrile and nontoxic appearing. Her vitals are stable. CBC with leukocytosis to 13.9. Metabolic panel without concerning findings. UA without evidence of infection. Ultrasound shows single intrauterine gestation with cardiac activity. Eight weeks and 5 days. Small subchorionic hemorrhage. Patient is not having any bleeding at this time. She was updated on her workup. Resting comfortably. Instructed to have further follow-up with her OB. She was given warnings to return to the ER Differential Diagnosis Differential diagnosis: Likely other (UTI, threatened miscarriage, miscarriage) Lab Data Attestation: I reviewed the patient's lab results. 08/22/25 22:07 08/22/25 22:07 Labs: Lab Results 08/22/25 08/22/25 Range/Units 22:07 22:08 WBC 13.9 H (4.5-10.0) K/mm3 RBC 4.82 (4.2-5.4) M/mm3 Hgb 14.0 (12.0-15.0) g/dL Hct 41.8 (37.0-47.0) % MCV 86.7 (80-100) fl MCH 29.0 (26-34) pg MCHC 33.5 (32-36) g/dl RDW 12.6 (11.5-14.5) % Plt Count 217 (150-375) k/mm3 MPV 10.3 (7.4-10.4) fl Immature Gran % (Auto) 0.4 (0-0.5) % Neut % (Auto) 71.6 (45.5-73.1) % Lymph % (Auto) 21.7 (18.3-44.2) % [place] % (Auto) 5.4 (2.6-8.5) % Eos % (Auto) 0.6 (0-4.4) % Baso % (Auto) 0.3 (0.2-1.2) % Lymph # (Auto) 3.02 (0.9-3.2) K/mm3 [place] # (Auto) 0.8 H (0.1-0.6) K/mm3 Eos # (Auto) 0.1 (0-0.3) K/mm3 Baso # (Auto) 0.0 (0.0-0.1) K/mm3 Abs Immat Gran (auto) 0.05 H (0.00-0.031) K/mm3 Absolute Neuts (auto) 10.0 H (1.3-6.7) K/mm3 Absolute Nucleated RBC 0.000 (0.0-0.012) K/mm3 Nucleated RBC % 0.0 (0.0-0.2) % Sodium 135 L (137-145) mmol/L Potassium 3.7 (3.4-5.0) mmol/L Chloride 105 (98-107) mmol/L Carbon Dioxide 23 (22-30) mmol/L Anion Gap 7 (4-12) mmol/L BUN 13 (7-17) mg/dL Creatinine 0.53 L (0.7-1.0) mg/dL Estim Creat Clear Calc 149 ml/min Estimated GFR > 60 (59 - ) Glucose 86 (65-110) mg/dL Calcium 9.4 (8.4-10.2) mg/dL Total Bilirubin 0.3 (0.2-1.3) mg/dL AST 26 (14-36) U/L ALT 23 (6-35) U/L Alkaline Phosphatase 59 (38-126) U/L Total Protein 7.4 (6.3-8.2) g/dL Albumin 4.3 (3.5-5.1) g/dL Lipase 69 (23-300) U/L Urine Color Yellow (Yellow) Urine Appearance Clear (Clear) Urine pH 5.5 (5.0-9.0) Ur Specific [place] 1.038 H (1.001-1.035) Urine Protein Negative (Negative) mg/dL Urine Glucose (UA) Negative (Negative) mg/dL Urine Ketones Negative (Negative) mg/dL Ur Blood (Man) Negative (Negative) Urine Nitrate Negative (Negative) Urine Bilirubin Negative (Negative) Urine Urobilinogen 1.0 (<2.0) mg/dL Leukocyte Esterase Rfl Negative (Negative) MICHELE/UL POC Urine HCG, Qual Positive (Negative) Imaging Data Radiologist's impression: Ultrasound OB: Single intrauterine gestation with cardiac activity. Ultrasound age 8 weeks, 5 days. Probable small subchorionic hemorrhage, otherwise no acute findings. Unremarkable ovaries Critical Care Time Critical Care Time Critical Care Time: No Discharge Plan Discharge Clinical Impression: Abdominal pain during Qualifiers: Trimester: first trimester Qualified Code(s): O26.891 - Other specified related conditions, first trimester Patient Disposition: Home Condition: Stable Instructions: Abdominal Pain in (ED) Additional Instructions: Return to the ER if you experience fever, chest pain, shortness of breath, abdominal pain with nausea and vomiting, you are unable to keep down liquids or solids, vaginal bleeding, or any other symptoms that are concerning to you Remain well hydrated. Tylenol as needed for discomfort Follow up with your OB Patient Language: Puerto Rican Prescriptions: No Action doxycycline monohydrate 100 mg tablet 100 mg PO BID 10 Days Qty: 20 0RF prednisone 20 mg tablet 40 mg PO DAILY 5 Days Qty: 10 0RF benzonatate 100 mg capsule 100 mg PO BID PRN (Reason: cough) Qty: 14 0RF albuterol sulfate 90 mcg/actuation HFA aerosol inhaler 2 puff inhalation QID PRN (Reason: shortness of breath or wheezing) Qty: 6.7 0RF (DME) Aerochamber MV Spacer See Rx Instructions .Route Qty: 1 0RF Rx Instructions: As directed Follow-up/Referrals: Unique Hayes MD [Primary Care Provider, TITLE I COORDINATOR]
[2025-08-23 01:39] VITALS: BP 120/67; PULSE 68; RESP 16; O2SAT 99
== END 2025-08-23 01:39 | disposition home or self-care (01) ==
PROVIDERS: Student in an Organized Health Care Education/Training Program; Emergency Provider Physician Assistant; PCP Obstetrics & Gynecology Gynecology
DX: O26.891 Other specified pregnancy related conditions, first trimester (principal); R10.30 Lower abdominal pain, unspecified; Z3A.08 8 weeks gestation of pregnancy
CPT/HCPCS: 36415; 76801; 80053; 81003; 81025; 83690; 85025; 96361; 96374; 99284; A9270; J2405; J7030

== ENCOUNTER 2025-09-12 10:50 | Outpatient (CLI) | payer MEDICAID, SELFPAY ==
--- NOTE | ~2025-09-12 | US_ITS ---
EXAMINATION: US OB <= 14 weeks fetus DATE: 09/12/2025 11:08 INDICATION: Subchorionic hematoma during first trimester TECHNIQUE: Real-time pelvic ultrasound utilizing both a transvaginal and transabdominal probe was performed. The interpreting radiologist was not present for the study. COMPARISON: None. FINDINGS: The uterus measures 13.4 x 7.3 x 7.2 cm. There is an intrauterine gestational sac. A single fetus is identified within the gestational sac. The crown rump length measures 4.5 cm, which correlates with an estimated gestational age of 11 weeks and 2 days. heart motion is identified measuring 165 beats per minute (bpm) by M-mode Doppler. No significant change in a small hypoechoic subchorionic hematoma along the caudal margin of the gestational sac which measures 14 x 7 x 4 mm. The bilateral ovaries are not visualized. There is no free fluid in the pelvis. IMPRESSION: 1. Single living fetus with heart rate of 165 bpm. 2. Gestational age by ultrasound of 11 weeks 2 day(s) +/- 7 day(s) with ultrasound estimated date of delivery (MANJULA) of 04/01/2026. Reviewed, dictated and finalized at location A. L GLUER IMPRESSION: 1. Single living fetus with heart rate of 165 bpm. 2. Gestational age by ultrasound of 11 weeks 2 day(s) +/- 7 day(s) with ultras ound estimated date of delivery (MANJULA) of 04/01/2026.
== END 2025-09-12 10:51 | disposition home or self-care (01) ==
LOC: MICIMG 10:52
PROVIDERS: PCP Obstetrics & Gynecology Gynecology; Visit Provider Obstetrics & Gynecology Gynecology
DX: O36.8910 Maternal care for other specified fetal problems, first trimester, not applicable or unspecified (principal); Z3A.00 Weeks of gestation of pregnancy not specified
CPT/HCPCS: 76801

== ENCOUNTER 2025-09-26 12:54 | Outpatient (CLI) | payer MEDICAID, SELFPAY ==
--- NOTE | ~2025-09-26 | US_ITS ---
EXAMINATION: US OB limited DATE: 09/26/2025 13:17 INDICATION: TECHNIQUE: Real-time ultrasound of the pelvis was performed. The interpreting radiologist was not present for the study. COMPARISON: None. FINDINGS: The anteverted uterus measures 10.0 x 7.4 x 9.6 cm. There is a single living fetus in variable presentation. The placenta is left posterior. No evident subchorionic hematoma heart rate is 152 beats per minute (bpm). The amniotic fluid volume is subjectively normal. IMPRESSION: 1. Single living fetus in variable presentation with heart rate of 152 bpm. 2. Normal left posterior placenta without evident subchorionic hematoma. Reviewed, dictated and finalized at location A. EM TECHNOLOGIST IMPRESSION: 1. Single living fetus in variable presentation with heart rate of 152 b pm. 2. Normal left posterior placenta without evident subchorionic hematoma.
== END 2025-09-26 12:55 | disposition home or self-care (01) ==
LOC: MICIMG 12:54
PROVIDERS: PCP Obstetrics & Gynecology Gynecology; Visit Provider Obstetrics & Gynecology Gynecology
DX: O41.8X90 Other specified disorders of amniotic fluid and membranes, unspecified trimester, not applicable or unspecified (principal)
CPT/HCPCS: 76815